=== PATIENT | female | born 2000 | race Two or more races ===

== ENCOUNTER 2022-12-30 12:56 | Emergency (ER) | payer OTHER ==
[~2022-12-30] VITALS: Ht 160 cm; Wt 62.1 kg
[2022-12-30] MEDS ORDERED: CARAFATE1 GM (13:14)
[2022-12-30] MEDS ORDERED: PEPCID AC20 MG (13:14)
[2022-12-30] MEDS ORDERED: ACID REDUCER20 M1 (13:14)
[2022-12-30 14:49] LABS: HEMATOCRIT 40.4 % (36.0-45.00); HEMOGLOBIN 13.9 g/dL (12.0-15.00); MEAN CELL VOLUME 89.7 fL (80.00-100.00); MEAN CORPUSCULAR HEMOGLOBIN 30.9 pg (27.00-32.0); MEAN CORPUSCULAR HGB CONC 34.5 g/dl (32.0-36.0); PLATELET COUNT 296 K/uL (150-450)
[2022-12-30 15:11] LABS: ALBUMIN 3.5 gm/dL (3.4-5.0); BILIRUBIN TOTAL 1.07 mg/dL (0.3-1.2); BILIRUBIN,CONJUGATED 0.28 mg/dL (0.0-0.2); BILIRUBIN,UNCONJUGATED 0.79 mg/dL (0.0-0.6); CREATININE SERUM 0.74 mg/dL (0.55-1.02); GFR 99.07; GLOBULINA 3.3 G/DL (2.4-3.5); POTASSIUM 4.09 mEq/L (3.5-5.1); TOTAL PROTEIN 6.8 gm/dL (6.4-8.2)
== END 2022-12-30 17:45 | disposition home or self-care (01) ==
LOC: ER 12:56
PROVIDERS: Emergency Medicine
DX: R10.84 Generalized abdominal pain (principal); Z88.8 Allergy status to other drugs, medicaments and biological substances; Z91.010 Allergy to peanuts; Z91.013 Allergy to seafood